=== PATIENT | female | born 1960 | race Caucasian/White ===

== ENCOUNTER 2016-11-24 01:27 | Emergency (ER) | payer OTHER ==
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
[~2016-11-24 01:27] MED LIST: ACIPHEX20 MG; ACIPHEX20 MG PO; ADVAIR 1001 DISK W/D; AMITRIPTYLINE H25 MG; AMOXICILLIN PO; BACLOFEN10 MG PO; BUPROPION HCL200 MG PO; COUMADIN5 MG; DULOXETINE HCL30 MG; DULOXETINE HCL60 MG PO; FIRST-OMEPR2 MG/1 ML; IBUPROFEN PO; IMODIUM2 MG PO; KETOPROFEN PO; LIDOCAINE HC20 MG/M1 MM; MORPHINE; NEURONTIN600 MG PO; OXYCODONE15 MG; PANTOPRAZOLE SO20 MG PO; PEN-VEE K PO; PERCOCET 7.5/321 TAB PO; PHENERGAN PO; PHENERGAN25 M1 PO; QUETIAPINE FUM100 MG; RELPAX40 MG PO; SINGULAIR; SINGULAIR PO; SINGULAIR4 MG; SYMBICORT; TOBRAMYCIN5 ML OP; TOPIRAMATE25 M1; WAL-ZYR10 M1; WELLBUTRIN; ZADITOR5 M1 OP; ZOFRAN ODT4 MG PO; ZOMIG5 MG; ZYRTEC
[2016-11-24] MEDS ORDERED: XARELTO10 MG PO (01:54)
[2016-11-24] MEDS ORDERED: ATARAX PO (01:54)
== END 2016-11-24 06:17 | disposition home or self-care (01) ==
LOC: SED 01:27
DX: S16.1XXA Strain of muscle, fascia and tendon at neck level, initial encounter (principal); F41.9 Anxiety disorder, unspecified; F17.200 Nicotine dependence, unspecified, uncomplicated; Z88.5 Allergy status to narcotic agent; Z79.899 Other long term (current) drug therapy; V49.40XA Driver injured in collision with unspecified motor vehicles in traffic accident, initial encounter
CPT/HCPCS: 72040; 72125; 96372; 99284; J1885